=== PATIENT | female | born 1960 | race African-American/Black ===

== ENCOUNTER 2018-12-14 14:55 | Inpatient (IN) | payer OTHER ==
[~2018-12-14] VITALS: Ht 162.6 cm; Wt 100.6 kg
[2018-12-14] MEDS ORDERED: METO-99 PO (15:24)
[2018-12-14] MEDS ORDERED: HYDR-3342 PO (15:24)
[2018-12-14] MEDS ORDERED: ATOR20TA PO (15:24)
[2018-12-14] MEDS ORDERED: LISI40TA PO (15:24)
[2018-12-14] MEDS ORDERED: AMLO-150 PO (15:24)
[2018-12-14 15:29] LABS: BASOPHILS # (AUTO) 0.11 x10^3/uL (0-0.1); BASOPHILS % (AUTO) 1 % (0-1); EOSINOPHILS # (AUTO) 0.09 x10^3/uL (0-0.4); EOSINOPHILS % (AUTO) 1 % (1-7); LYMPHOCYTES # (AUTO) 4.04 x10^3/uL (1-3.4); LYMPHOCYTES % (AUTO) 42 % (22-44); MD NO; MEAN CORPUSCULAR HEMOGLOBIN 29.9 pg (27.0-34.8); MEAN CORPUSCULAR HGB CONC 32.7 g/dL (32.4-35.8); MEAN CORPUSCULAR VOLUME 91.4 fL (80-100); MEAN PLATELET VOLUME 8.3 fL (7.4-10.4); MONOCYTES # (AUTO) 0.72 x10^3/uL (0.2-0.8); MONOCYTES % (AUTO) 8 % (2-9); NEUTROPHILS # (AUTO) 4.58 x10^3/uL (1.8-6.8); NEUTROPHILS % (AUTO) 48 % (42-75); PLATELET COUNT 290 x10^3/uL (130-400); RED BLOOD COUNT 5.46 x10^6/uL (3.82-5.3); RED CELL DISTRIBUTION WIDTH 15.4 % (9.6-15.2)
[2018-12-14] MEDS ORDERED: ONDANSETRON 2MG/ML, 2ML IVPush ONE (15:30)
[2018-12-14] MEDS ORDERED: MAALOX/HYOSCYAMINE/LIDOCAINE 45 ML BTL PO ONE (15:30)
[2018-12-14] MEDS ORDERED: FAMOTIDINE 20 MG/2 ML IVP ONE (15:30)
[2018-12-14] MEDS ORDERED: SODIUM CHLORIDE FLUSH 10ML SYR IVF ONE ×2 (15:30)
[2018-12-14 15:39] LABS: ALANINE AMINOTRANSFERASE 24 U/L (12-78); ALBUMIN 3.6 g/dL (3.4-5.0); ANION GAP 8 mmol/L (5-15); CALCIUM 9.3 mg/dL (8.5-10.1); CHLORIDE 107 mmol/L (98-107); CREATININE 1.16 mg/dL (0.55-1.02)
[2018-12-14 15:44] LABS: ALKALINE PHOSPHATASE 67 U/L (45-117); BILIRUBIN,TOTAL 0.3 mg/dL (0.2-1.0); TOTAL PROTEIN 7.7 g/dL (6.4-8.2); TROPONIN I < 0.015 ng/mL (0.000-0.045)
[2018-12-14] MEDS ORDERED: ONDANSETRON 2MG/ML, 2ML ONE (15:49)
[2018-12-14] MEDS ORDERED: FAMOTIDINE 20 MG/2 ML ONE (15:50)
[2018-12-14] MEDS ORDERED: MAALOX/HYOSCYAMINE/LIDOCAINE 45 ML BTL ONE (15:50)
--- NOTE | 2018-12-14 15:57 | NUR ---
IV ESTABLISHED AND PT MEDICATED PER SEP, NOTIFIED OF PTS BP. PT RESTING IN [facility], CALL LIGHT WITHIN REACH. PT TO HAVE CT ALSO PER
[2018-12-14] MEDS ORDERED: hydrALAzine 20 MG/ML, 1ML IV ONE (16:00)
[2018-12-14] MEDS ORDERED: hydrALAzine 20 MG/ML, 1ML ONE (16:06)
--- NOTE | 2018-12-14 16:53 | NUR ---
BP NORMALIZED AFTER MEDS ERP AWARE
[2018-12-14] MEDS ORDERED: OMNIPAQUE 350 MG/ML, 100ML BOTTLE ONE (17:46)
--- NOTE | 2018-12-14 17:56 | NUR ---
RETURNED FROM CT
[2018-12-14] MEDS ORDERED: hydrALAzine 20 MG/ML, 1ML IV PRN (18:30)
--- NOTE | 2018-12-14 19:02 | NUR ---
RECEIVED REPORT FROM [facility] AND[facility] TO ASSUME CARE OF PT. DR. CHILDERS AND [facility] HAVE BOTH BEEN IN DISCUSSING POC WITH PT. PT. NOW AGREEABLE TO ADMISSION(PER REPORT PT. WAS GOING TO LEAVE AMA BUT UPON ROAD TEST BY [facility] ANDR[facility] PT. BECAME WEAK AND DIZZY.) [facility] REPORTS REPORT HAS ALREADY BEEN CALLED TO FLOOR. WILL F/U WITH TP RN TO ENSURE PT. STILL HAS BED UPSTAIRS AND IS READY FOR TRANSPORT.
[2018-12-14 19:24] VITALS: BP 161/64
[2018-12-14] MEDS ORDERED: MORPHINE SULFATE 4 MG/ML, 1ML IVPush PRN (21:00)
[2018-12-14 23:30] VITALS: BP 129/80
[2018-12-15 01:02] VITALS: BP 143/83
[2018-12-15 05:27] LABS: BASOPHILS # (AUTO) 0.04 x10^3/uL (0-0.1); BASOPHILS % (AUTO) 1 % (0-1); EOSINOPHILS # (AUTO) 0.06 x10^3/uL (0-0.4); EOSINOPHILS % (AUTO) 1 % (1-7); LYMPHOCYTES # (AUTO) 3.57 x10^3/uL (1-3.4); LYMPHOCYTES % (AUTO) 45 % (22-44); MD NO; MEAN CORPUSCULAR HEMOGLOBIN 30.5 pg (27.0-34.8); MEAN CORPUSCULAR HGB CONC 32.8 g/dL (32.4-35.8); MEAN CORPUSCULAR VOLUME 92.9 fL (80-100); MEAN PLATELET VOLUME 9.1 fL (7.4-10.4); MONOCYTES # (AUTO) 0.63 x10^3/uL (0.2-0.8); MONOCYTES % (AUTO) 8 % (2-9); NEUTROPHILS # (AUTO) 3.61 x10^3/uL (1.8-6.8); NEUTROPHILS % (AUTO) 46 % (42-75); PLATELET COUNT 270 x10^3/uL (130-400); RED BLOOD COUNT 4.98 x10^6/uL (3.82-5.3); RED CELL DISTRIBUTION WIDTH 15.2 % (9.6-15.2)
[2018-12-15 05:43] LABS: HEMOGLOBIN A1C 5.7 % (4.2-6.3)
[2018-12-15 05:51] LABS: ALBUMIN 3.2 g/dL (3.4-5.0); CHLORIDE 108 mmol/L (98-107)
[2018-12-15 06:00] LABS: ALANINE AMINOTRANSFERASE 20 U/L (12-78); ALKALINE PHOSPHATASE 60 U/L (45-117); ANION GAP 9 mmol/L (5-15); BILIRUBIN, DIRECT 0.1 mg/dL (0.1-0.2); BILIRUBIN,INDIRECT 0.5 mg/dL (0.0-2.0); BILIRUBIN,TOTAL 0.6 mg/dL (0.2-1.0); CREATININE 1.25 mg/dL (0.55-1.02); TROPONIN I < 0.015 ng/mL (0.000-0.045)
[2018-12-15 06:45] VITALS: BP 166/90
[2018-12-15 12:49] VITALS: BP 166/98
[2018-12-15] MEDS ORDERED: LISINOPRIL 40 MG TABLET PO SCH (13:00)
[2018-12-15] MEDS ORDERED: AMLODIPINE 5 MG TABLET PO SCH (13:00)
[2018-12-15] MEDS ORDERED: ATORVASTATIN 20 MG TABLET PO SCH (21:00)
== END 2018-12-15 15:46 | disposition home or self-care (01) | DRG 73 ==
LOC: ED 17:44 → EDIP 18:08 → 5SO 19:43 → DCLOUNGE 12-15 15:32
PROVIDERS: ADMIT Internal Medicine; ATTEND Internal Medicine
DX: G90.8 Other disorders of autonomic nervous system (principal); K85.90 Acute pancreatitis without necrosis or infection, unspecified; K86.1 Other chronic pancreatitis; E27.8 Other specified disorders of adrenal gland; E78.00 Pure hypercholesterolemia, unspecified; K57.30 Diverticulosis of large intestine without perforation or abscess without bleeding; R00.1 Bradycardia, unspecified; E78.5 Hyperlipidemia, unspecified; G89.29 Other chronic pain; I11.9 Hypertensive heart disease without heart failure; I16.0 Hypertensive urgency; K21.9 Gastro-esophageal reflux disease without esophagitis; Z72.0 Tobacco use; Z90.49 Acquired absence of other specified parts of digestive tract; Z88.5 Allergy status to narcotic agent; Z71.6 Tobacco abuse counseling
CPT/HCPCS: 36415; J3490; 71045; 74177; 80048; 80053; 80076; 83036; 83690; 83880; 84443; 84484; 85025; 93005; 93306; 93880; 96374; 96375; G0378; J2405; Q9967; J0360

== ENCOUNTER 2019-02-08 21:50 | Observation (INO) | payer OTHER ==
[~2019-02-08] VITALS: Ht 162.6 cm; Wt 99.8 kg
[~2019-02-08 21:50] MED LIST: AMLO-150 PO; ATOR20TA PO; HYDR-3342 PO; LISI40TA PO; METO-99 PO
[2019-02-08] MEDS ORDERED: MORPHINE SULFATE 4 MG/ML, 1ML IVPush PRN (22:00)
[2019-02-08] MEDS ORDERED: ONDANSETRON 2MG/ML, 2ML IVPush ONE (22:00)
--- NOTE | 2019-02-08 22:06 | NUR ---
SUDDEN CHEST PAIN THAT STARTED ABOUT 1 HOUR AGO. PT GIVEN 1 NITRO PER EMS THAT RESOLVED CHEST PAIN TEMPORARILY. 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 ER MD AT BEDSIDE ,PT ASSESSMENT REVIEVED, ORDERS RECIEVED. PT PLACED ON FULL MONITOR. CALL LIGHT WITHIN REACH. SON AT BEDSIDE. NO NEEDS STATED AT THIS TIME. WILL CONTINE TO MONITOR.
[2019-02-08 22:28] LABS: MEAN CORPUSCULAR HGB CONC 32.8 g/dL (32.4-35.8); MEAN CORPUSCULAR VOLUME 91.6 fL (80-100); MEAN PLATELET VOLUME 8.4 fL (7.4-10.4); PLATELET COUNT 310 x10^3/uL (130-400); RED BLOOD COUNT 4.88 x10^6/uL (3.82-5.3); RED CELL DISTRIBUTION WIDTH 15.3 % (9.6-15.2)
[2019-02-08] MEDS ORDERED: ONDANSETRON 2MG/ML, 2ML ONE (22:30)
[2019-02-08] MEDS ORDERED: MORPHINE SULFATE 4 MG/ML, 1ML ONE (22:31)
[2019-02-08 22:36] LABS: ALANINE AMINOTRANSFERASE 22 U/L (12-78); ALBUMIN 3.3 g/dL (3.4-5.0); ANION GAP 8 mmol/L (5-15); CALCIUM 8.6 mg/dL (8.5-10.1); CHLORIDE 107 mmol/L (98-107)
[2019-02-08 22:40] LABS: ALKALINE PHOSPHATASE 63 U/L (45-117); BILIRUBIN,TOTAL 0.3 mg/dL (0.2-1.0); TOTAL PROTEIN 7.5 g/dL (6.4-8.2); TROPONIN I < 0.015 ng/mL (0.000-0.045)
[2019-02-08 22:47] LABS: MD YES
[2019-02-08 22:50] LABS: ANISOCYTOSIS 1+; EOS#(MANUAL) 0.27 x10^3/uL (0.0-0.4); EOS% (MANUAL) 3 % (1-7); LYMPH#(MANUAL) 3.03 x10^3/uL (1-3.4); LYMPHS% (MANUAL) 34 % (22-44); MONOS#(MANUAL) 1.25 x10^3/uL (0.3-2.7); MONOS% (MANUAL) 14 % (2-9); SEG#(MANUAL) 4.36 x10^3/uL (1.8-6.8); SEGS% (MANUAL) 49 % (42-75)
[2019-02-08 22:51] LABS: <PLATELET ESTIMATE> ADEQUATE; <PLT MORPHOLOGY> NORMAL PLT MORPH
--- NOTE | 2019-02-08 23:17 | NUR ---
PAIN REASSESSED AND PT STATES SHE IS STILL HAVING CHEST PAIN AND RATES IT A 6 NOW.
[2019-02-08] MEDS ORDERED: MAALOX/HYOSCYAMINE/LIDOCAINE 45 ML BTL ONE (23:37)
[2019-02-08] MEDS ORDERED: FAMOTIDINE 20 MG/2 ML ONE (23:37)
[2019-02-08] MEDS ORDERED: OMNIPAQUE 350 MG/ML, 100ML BOTTLE ONE (23:53)
[2019-02-09] MEDS ORDERED: MAALOX/HYOSCYAMINE/LIDOCAINE 45 ML BTL PO ONE
[2019-02-09] MEDS ORDERED: FAMOTIDINE 20 MG/2 ML IVPush ONE
[2019-02-09] MEDS ORDERED: HYDR25TA6 PO (00:07)
[2019-02-09 01:30] VITALS: BP 128/84
[2019-02-09] MEDS ORDERED: hydrALAzine 20 MG/ML, 1ML IVPush PRN (03:00)
[2019-02-09] MEDS ORDERED: POTASSIUM CHLORIDE 20 MEQ TAB.ER.PRT PO ONE (03:00)
[2019-02-09] MEDS ORDERED: morphine SULFATE 10 MG/ML, 1ML IVPush PRN (03:00)
[2019-02-09] MEDS ORDERED: ONDANSETRON 2MG/ML, 2ML IVPush PRN (03:00)
[2019-02-09] MEDS ORDERED: ENALAPRILAT 1.25 MG/ML, 1ML IVPush PRN (03:00)
[2019-02-09] MEDS ORDERED: ACETAMINOPHEN 325 MG TABLET PO PRN (03:00)
[2019-02-09] MEDS ORDERED: NITROGLYCERIN 0.4 MG BOTTLE (25 TABS) SL PRN (03:00)
[2019-02-09] MEDS ORDERED: ENOXAPARIN 40 MG/0.4 ML SQ SCH (03:00)
[2019-02-09] MEDS ORDERED: ASPIRIN 81 MG TABLET EC ONE (03:56)
[2019-02-09] MEDS ORDERED: ASPIRIN 81 MG TABLET EC PO SCH (06:00)
[2019-02-09 07:04] LABS: TROPONIN I < 0.015 ng/mL (0.000-0.045)
[2019-02-09] MEDS ORDERED: PANTOPROZOLE 40MG TABLET PO SCH (07:30)
[2019-02-09] MEDS ORDERED: POTASSIUM CHLORIDE 20 MEQ TAB.ER.PRT PO SCH (08:00)
[2019-02-09 08:40] VITALS: BP 126/86
[2019-02-09] MEDS ORDERED: AMLODIPINE 5 MG TABLET PO SCH (09:00)
[2019-02-09] MEDS ORDERED: LISINOPRIL 40 MG TABLET PO SCH (09:00)
[2019-02-09] MEDS ORDERED: HYDROCHLOROTHIAZIDE 25 MG TABLET PO SCH (09:00)
[2019-02-09 13:26] VITALS: BP 137/85
[2019-02-09 14:25] LABS: TROPONIN I < 0.015 ng/mL (0.000-0.045)
[2019-02-09 15:31] VITALS: BP 132/79
[2019-02-09] MEDS ORDERED: ASPI81TA45 PO (15:43)
[2019-02-09] MEDS ORDERED: PANT40TA5 PO (15:43)
[2019-02-09] MEDS ORDERED: POTA20TA6 PO (15:43)
[2019-02-09] MEDS ORDERED: ATORVASTATIN 20 MG TABLET PO SCH (21:00)
[2019-02-09] MEDS ORDERED: ATORVASTATIN 40 MG TABLET PO SCH (21:00)
[2019-02-10] MEDS ORDERED: HEPARIN 5,000 UNITS/ML, 1ML SQ SCH (03:00)
== END 2019-02-09 17:15 | disposition home or self-care (01) ==
LOC: ED 23:59 → INTOOBSV 02-09 01:06 → EDIP 02-09 01:06 → 5SO 02-09 01:24
PROVIDERS: ADMIT Family Medicine; ATTEND Family Medicine
DX: R07.89 Other chest pain (principal); I13.10 Hypertensive heart and chronic kidney disease without heart failure, with stage 1 through stage 4 chronic kidney disease, or unspecified chronic kidney disease; N18.3 Chronic kidney disease, stage 3 (moderate); E78.5 Hyperlipidemia, unspecified; K21.9 Gastro-esophageal reflux disease without esophagitis; G89.29 Other chronic pain; F17.210 Nicotine dependence, cigarettes, uncomplicated; F10.20 Alcohol dependence, uncomplicated; Z79.899 Other long term (current) drug therapy
CPT/HCPCS: 36415; 71045; 71275; 78452; 80053; 83690; 83880; 84484; 85025; 85379; 93005; 93017; 96372; 96374; 96375; 99284; A9502; G0378; J1650; J2270; J2405; J3490; Q9967

== ENCOUNTER 2019-09-11 23:06 | Emergency (ER) | payer OTHER ==
[~2019-09-11] VITALS: Ht 154.9 cm; Wt 86.1 kg
[~2019-09-11 23:06] MED LIST changes: +ASPI81TA45 PO; +HYDR25TA6 PO; +PANT40TA5 PO; +POTA20TA6 PO
--- NOTE | 2019-09-12 00:17 | NUR ---
First contact w/ pt. Pt presents to ed c/o R flank and back painxapproximately a month. States painful urination and increased frequency for "about a week" that has since stopped. States pain and swelling to R flank and abd increased. Recently had sx on vessels in abd. Monitoring applied. Vss. Call light within reach. Attempted ua at this time.
[2019-09-12] MEDS ORDERED: MORPHINE SULFATE 4 MG/ML, 1ML ONE (00:29)
[2019-09-12] MEDS ORDERED: ONDANSETRON 2MG/ML, 2ML ONE (00:29)
[2019-09-12] MEDS ORDERED: SODIUM CHLORIDE FLUSH 10ML SYR IVF ONE (00:30)
[2019-09-12] MEDS ORDERED: ONDANSETRON 2MG/ML, 2ML IVPush ONE (00:30)
[2019-09-12] MEDS ORDERED: MORPHINE SULFATE 4 MG/ML, 1ML IVPush PRN (00:30)
[2019-09-12 00:57] LABS: ALANINE AMINOTRANSFERASE 20 U/L (12-78); ALBUMIN 3.1 g/dL (3.4-5.0); ANION GAP 9 mmol/L (5-15); CALCIUM 8.5 mg/dL (8.5-10.1); CHLORIDE 102 mmol/L (98-107); CREATININE 1.25 mg/dL (0.55-1.02)
[2019-09-12 00:59] LABS: MEAN CORPUSCULAR HEMOGLOBIN 30.3 pg (27.0-34.8); MEAN CORPUSCULAR HGB CONC 32.9 g/dL (32.4-35.8); MEAN PLATELET VOLUME 8.3 fL (7.4-10.4); PLATELET COUNT 289 x10^3/uL (130-400); RED BLOOD COUNT 5.18 x10^6/uL (3.82-5.3); RED CELL DISTRIBUTION WIDTH 14.8 % (9.6-15.2)
[2019-09-12 01:02] LABS: ALKALINE PHOSPHATASE 68 U/L (45-117); BILIRUBIN,TOTAL 0.3 mg/dL (0.2-1.0); TOTAL PROTEIN 8.1 g/dL (6.4-8.2); TROPONIN I < 0.015 ng/mL (0.000-0.045)
--- NOTE | 2019-09-12 01:11 | NUR ---
forensic technician to bedside, patient transported without event. Awaiting return, imaging to be read.
[2019-09-12 01:23] LABS: CULTURE INDICATED? YES; MICROSCOPIC INDICATED
[2019-09-12 01:30] LABS: MD YES
[2019-09-12 01:35] LABS: ANISOCYTOSIS 1+; BAND#(MANUAL) 0.12 x10^3/uL; BANDS%(MANUAL) 1 % (0-7); EOS#(MANUAL) 0.35 x10^3/uL (0.0-0.4); EOS% (MANUAL) 3 % (1-7); LYMPH#(MANUAL) 3.74 x10^3/uL (1-3.4); LYMPHS% (MANUAL) 32 % (22-44); MONOS#(MANUAL) 1.52 x10^3/uL (0.3-2.7); MONOS% (MANUAL) 13 % (2-9); REACTIVE LYMPHS # (MANUAL) 0.23 x10^3/uL (0-0); REACTIVE LYMPHS % (MANUAL) 2 % (0-0); SEG#(MANUAL) 5.73 x10^3/uL (1.8-6.8); SEGS% (MANUAL) 49 % (42-75)
[2019-09-12 01:36] LABS: <PLATELET ESTIMATE> ADEQUATE; <PLT MORPHOLOGY> NORMAL PLT MORPH; POLYCHROMASIA 1+
[2019-09-12 02:03] VITALS: BP 121/74
[2019-09-12] MEDS ORDERED: OMNIPAQUE 350 MG/ML, 100ML BOTTLE ONE (06:14)
== END 2019-09-12 02:27 | disposition home or self-care (01) ==
LOC: ED 09-12 01:49
DX: K57.30 Diverticulosis of large intestine without perforation or abscess without bleeding (principal); N30.00 Acute cystitis without hematuria; N10 Acute pyelonephritis; I10 Essential (primary) hypertension; E78.00 Pure hypercholesterolemia, unspecified; E78.5 Hyperlipidemia, unspecified; F17.200 Nicotine dependence, unspecified, uncomplicated
CPT/HCPCS: 36415; 74177; 80053; 81001; 83690; 84484; 84703; 85025; 87077; 87086; 93005; 96374; 96375; 99285; J2270; J2405; Q9967; 87186

== ENCOUNTER 2020-08-28 19:18 | Inpatient (IN) | payer OTHER ==
[~2020-08-28] VITALS: Ht 162.6 cm; Wt 74.6 kg
[~2020-08-28 19:18] MED LIST changes: -LISI40TA PO; +LISI40TA9 PO; -PANT40TA5 PO; +PANT40TA6 PO
--- NOTE | 2020-08-28 19:27 | NUR ---
ERP AND [facility] AT BEDSIDE
[2020-08-28] MEDS ORDERED: ONDANSETRON 2MG/ML, 2ML IVPush ONE (19:30)
[2020-08-28] MEDS ORDERED: MORPHINE SULFATE 4 MG/ML, 1ML ONE ×2 (19:31→20:42)
[2020-08-28] MEDS ORDERED: ONDANSETRON 2MG/ML, 2ML ONE (19:31)
[2020-08-28] MEDS: MORPHINE SULFATE 4 MG/ML, 1ML IVPush PRN ×2 (19:38→20:47)
--- NOTE | 2020-08-28 20:53 | NUR ---
pt having intense pain, medicated per emar, placed on bed jalloh, will reassess
--- NOTE | 2020-08-28 21:15 | NUR ---
PT UNABLE TO URINATE AT THIS TIME, PT HAVING A LOT OF PAIN WHEN TURNING SIDE TO SIDE FOR BEDPAN PLACEMENT, REFUSED PUREWICK AT THIS TIME. STATES SHE DOES NOT FEEL LIKE SHE HAS TO "PEE THAT BAD". PT TO CALL WHEN WANTING TO REATTEMPT
--- NOTE | 2020-08-28 21:40 | NUR ---
SPOKE WITH DR. SALAS, IF PATIENT IS UNABLE TO WALK AND CARE FOR HERSELF, SHE SHOULD BE ADMITTED. THIS RN ATTEMPTED TO GET PATEINT UP, PT HAD PAIN MEDICATION, PT SCREAMING IN PAIN WHILE SITTING UP, PT REQUIRED A LOT OF ASSISTANCE FROM THIS RN, ONLY ABLE TO GET PATIENT TO BSC, PT SHUFFLING WHILE WALKING. DR. SALAS AWARE.
[2020-08-28] MEDS ORDERED: HYDROmorphone 1 MG/ML, 1ML INJ ONE (21:59)
[2020-08-28] MEDS ORDERED: HYDROmorphone 2 MG/ML, 1ML IVPush PRN (22:00)
--- NOTE | 2020-08-28 22:16 | NUR ---
PT RESTING IN [facility], MEDICATED FOR PAIN PER EMAR, PT PLACED ON 02 AND ALL MONITORS, CALL LIGHT WITHIN REACH, MED REC UPDATED
--- NOTE | 2020-08-28 22:45 | NUR ---
HOSP AT BEDSIDE
[2020-08-28] MEDS ORDERED: ONDANSETRON 2MG/ML, 2ML IVPush PRN ×2 (23:00)
[2020-08-28] MEDS ORDERED: ACETAMINOPHEN 325 MG TABLET PO PRN (23:00)
[2020-08-28] MEDS ORDERED: BISACODYL 10 MG SUPP PR PRN (23:00)
[2020-08-28] MEDS ORDERED: POLYETHYLENE GLYCOL 17 GM PACKET PO PRN (23:00)
[2020-08-28] MEDS ORDERED: HYDROmorphone 1 MG/ML, 1ML INJ IVPush PRN (23:00)
[2020-08-28] MEDS ORDERED: KETOROLAC 30 MG/1 ML IV PRN (23:00)
[2020-08-28] MEDS ORDERED: SODIUM CHLORIDE FLUSH 10ML SYR IVF PRN (23:00)
[2020-08-28 23:03] LABS: BASOPHILS % (AUTO) 1 % (0-1); EOSINOPHILS % (AUTO) 1 % (1-7); LYMPHOCYTES % (AUTO) 36 % (22-44); MEAN CORPUSCULAR HEMOGLOBIN 31.1 pg (27.0-34.8); MEAN PLATELET VOLUME 8.5 fL (7.4-10.4); MONOCYTES % (AUTO) 9 % (2-9); NEUTROPHILS % (AUTO) 54 % (42-75); PLATELET COUNT 249 x10^3/uL (130-400); RED BLOOD COUNT 4.77 x10^6/uL (3.82-5.3); RED CELL DISTRIBUTION WIDTH 14.7 % (9.6-15.2)
[2020-08-28 23:08] LABS: MD NO
[2020-08-28 23:13] LABS: ANION GAP 6 mmol/L (5-15); CALCIUM 8.7 mg/dL (8.5-10.1); CHLORIDE 108 mmol/L (98-107); CREATININE 0.96 mg/dL (0.55-1.02)
[2020-08-28 23:14] LABS: ALANINE AMINOTRANSFERASE 36 U/L (12-78); ALBUMIN 3.4 g/dL (3.4-5.0)
[2020-08-28 23:16] LABS: ALKALINE PHOSPHATASE 60 U/L (45-117); BILIRUBIN,TOTAL 0.4 mg/dL (0.2-1.0); TOTAL PROTEIN 7.2 g/dL (6.4-8.2)
--- NOTE | 2020-08-28 23:39 | NUR ---
REPORT GIVEN TO [facility] ROSE
[2020-08-29 00:01] VITALS: BP 161/95
[2020-08-29] MEDS: SODIUM CHLORIDE FLUSH 10ML SYR IVF SCH ×3 (00:09→20:35)
[2020-08-29] MEDS: LIDODERM 5% PATCH TD SCH (00:09)
[2020-08-29 00:19] VITALS: BP 161/95
[2020-08-29] MEDS: morphine SULFATE 10 MG/ML, 1ML IVPush PRN ×5 (01:13→17:09)
[2020-08-29] MEDS: ASPIRIN 81 MG TABLET EC PO SCH (05:00)
[2020-08-29 07:07] VITALS: BP 134/74
[2020-08-29] MEDS: AMLODIPINE 5 MG TABLET PO SCH (08:40)
[2020-08-29] MEDS: HYDROCHLOROTHIAZIDE 25 MG TABLET PO SCH (08:40)
[2020-08-29] MEDS: SENNA/DOCUSATE TABLET PO SCH (08:41)
[2020-08-29] MEDS: LISINOPRIL 40 MG TABLET PO SCH (08:41)
[2020-08-29] MEDS ORDERED: LORazepam 1MG TABLET PO ONE ×2 (11:00→16:00)
[2020-08-29 12:15] VITALS: BP 151/90
[2020-08-29] MEDS ORDERED: GADOTERATE 7.5 MMOL/15 ML VIAL ONE (16:40)
[2020-08-29 19:23] VITALS: BP 133/77
[2020-08-29] MEDS: ATORVASTATIN 20 MG TABLET PO SCH (20:35)
[2020-08-30] MEDS: LIDODERM 5% PATCH TD SCH (01:02)
[2020-08-30 01:04] VITALS: BP 137/83
[2020-08-30] MEDS: morphine SULFATE 10 MG/ML, 1ML IVPush PRN ×3 (03:42→16:39)
[2020-08-30] MEDS: ASPIRIN 81 MG TABLET EC PO SCH (06:11)
[2020-08-30 07:23] VITALS: BP 137/82
[2020-08-30] MEDS: SENNA/DOCUSATE TABLET PO SCH (08:44)
[2020-08-30] MEDS: HYDROCHLOROTHIAZIDE 25 MG TABLET PO SCH (08:45)
[2020-08-30] MEDS: AMLODIPINE 5 MG TABLET PO SCH (08:45)
[2020-08-30] MEDS: LISINOPRIL 40 MG TABLET PO SCH (08:45)
[2020-08-30] MEDS: METHOCARBAMOL 500 MG TABLET PO PRN ×2 (08:47→17:58)
[2020-08-30] MEDS: SODIUM CHLORIDE FLUSH 10ML SYR IVF SCH ×2 (08:50→21:28)
[2020-08-30 12:21] VITALS: BP 152/97
[2020-08-30 18:52] VITALS: BP 151/94
[2020-08-30] MEDS: ATORVASTATIN 20 MG TABLET PO SCH (21:27)
[2020-08-30] MEDS: OXYcodone IR 5MG TABLET PO PRN (21:28)
[2020-08-31 00:52] VITALS: BP 153/88
[2020-08-31] MEDS: LIDODERM 5% PATCH TD SCH (01:00)
[2020-08-31] MEDS: OXYcodone IR 5MG TABLET PO PRN (06:24)
[2020-08-31 07:06] VITALS: BP 174/94
[2020-08-31] MEDS: AMLODIPINE 5 MG TABLET PO SCH (08:27)
[2020-08-31] MEDS: HYDROCHLOROTHIAZIDE 25 MG TABLET PO SCH (08:27)
[2020-08-31] MEDS: SENNA/DOCUSATE TABLET PO SCH (08:27)
[2020-08-31] MEDS: LISINOPRIL 40 MG TABLET PO SCH (08:27)
[2020-08-31] MEDS: SODIUM CHLORIDE FLUSH 10ML SYR IVF SCH ×2 (08:28→20:29)
[2020-08-31] MEDS: morphine SULFATE 10 MG/ML, 1ML IVPush PRN (08:57)
[2020-08-31] MEDS: HYDROcodone/APAP 5/325 TABLET PO PRN ×2 (12:02→20:28)
[2020-08-31 12:26] VITALS: BP 166/84
[2020-08-31] MEDS ORDERED: CYCLOBENZAPRINE 10 MG TABLET PO SCH (16:00)
[2020-08-31] MEDS: CYCLOBENZAPRINE 10 MG TABLET PO SCH ×2 (16:24→20:28)
[2020-08-31] MEDS: ATORVASTATIN 20 MG TABLET PO SCH (20:28)
[2020-08-31 20:30] VITALS: BP 134/82
[2020-09-01 00:49] VITALS: BP 131/79
[2020-09-01] MEDS: LIDODERM 5% PATCH TD SCH (00:49)
[2020-09-01] MEDS: HYDROcodone/APAP 5/325 TABLET PO PRN ×2 (03:35→09:22)
[2020-09-01] MEDS: METHOCARBAMOL 500 MG TABLET PO PRN (04:55)
[2020-09-01 08:33] VITALS: BP 149/83
[2020-09-01] MEDS: CYCLOBENZAPRINE 10 MG TABLET PO SCH ×2 (09:20→19:48)
[2020-09-01] MEDS: AMLODIPINE 5 MG TABLET PO SCH (09:20)
[2020-09-01] MEDS: LISINOPRIL 40 MG TABLET PO SCH (09:20)
[2020-09-01] MEDS: SENNA/DOCUSATE TABLET PO SCH (09:21)
[2020-09-01] MEDS: SODIUM CHLORIDE FLUSH 10ML SYR IVF SCH ×2 (09:35→19:49)
[2020-09-01] MEDS: HYDROCHLOROTHIAZIDE 25 MG TABLET PO SCH (09:35)
[2020-09-01] MEDS: HYDROmorphone 1 MG/ML, 1ML INJ IV PRN ×2 (12:30→19:48)
[2020-09-01 15:57] VITALS: BP 123/77
[2020-09-01 19:46] VITALS: BP 154/88
[2020-09-01] MEDS: ATORVASTATIN 20 MG TABLET PO SCH (19:48)
[2020-09-02 01:28] VITALS: BP 148/79
[2020-09-02] MEDS: LIDODERM 5% PATCH TD SCH (01:29)
[2020-09-02] MEDS: HYDROmorphone 1 MG/ML, 1ML INJ IV PRN ×4 (01:40→21:21)
[2020-09-02 07:43] VITALS: BP 135/81
[2020-09-02] MEDS: CYCLOBENZAPRINE 10 MG TABLET PO SCH ×3 (08:27→21:20)
[2020-09-02] MEDS: SENNA/DOCUSATE TABLET PO SCH (08:27)
[2020-09-02] MEDS: LISINOPRIL 40 MG TABLET PO SCH (08:28)
[2020-09-02] MEDS: AMLODIPINE 5 MG TABLET PO SCH (08:28)
[2020-09-02] MEDS: HYDROCHLOROTHIAZIDE 25 MG TABLET PO SCH (08:28)
[2020-09-02] MEDS: SODIUM CHLORIDE FLUSH 10ML SYR IVF SCH ×2 (08:29→21:21)
[2020-09-02 13:12] VITALS: BP 118/74
[2020-09-02 18:56] VITALS: BP 149/91
[2020-09-02] MEDS: ATORVASTATIN 20 MG TABLET PO SCH (21:20)
[2020-09-03 01:30] VITALS: BP 142/83
[2020-09-03] MEDS: LIDODERM 5% PATCH TD SCH (02:00)
[2020-09-03 02:15] VITALS: BP 153/78
[2020-09-03] MEDS: HYDROmorphone 1 MG/ML, 1ML INJ IV PRN ×4 (02:20→19:41)
[2020-09-03 04:55] LABS: BASOPHILS % (AUTO) 1 % (0-1); EOSINOPHILS % (AUTO) 0 % (1-7); LYMPHOCYTES % (AUTO) 17 % (22-44); MEAN CORPUSCULAR HEMOGLOBIN 31.2 pg (27.0-34.8); MEAN CORPUSCULAR HGB CONC 34.4 g/dL (32.4-35.8); MEAN PLATELET VOLUME 8.3 fL (7.4-10.4); MONOCYTES % (AUTO) 16 % (2-9); NEUTROPHILS % (AUTO) 67 % (42-75); PLATELET COUNT 237 x10^3/uL (130-400); RED BLOOD COUNT 4.82 x10^6/uL (3.82-5.3); RED CELL DISTRIBUTION WIDTH 14.3 % (9.6-15.2)
[2020-09-03 05:04] LABS: ALBUMIN 2.9 g/dL (3.4-5.0); ANION GAP 6 mmol/L (5-15); CALCIUM 8.8 mg/dL (8.5-10.1); CHLORIDE 101 mmol/L (98-107)
[2020-09-03 05:10] LABS: ALANINE AMINOTRANSFERASE 25 U/L (12-78); ALKALINE PHOSPHATASE 69 U/L (45-117); BILIRUBIN,TOTAL 0.3 mg/dL (0.2-1.0); CREATININE 0.92 mg/dL (0.55-1.02)
[2020-09-03 05:40] LABS: MD SCAN
[2020-09-03] MEDS: CYCLOBENZAPRINE 10 MG TABLET PO SCH ×3 (07:53→21:07)
[2020-09-03] MEDS: SENNA/DOCUSATE TABLET PO SCH (07:53)
[2020-09-03] MEDS: HYDROCHLOROTHIAZIDE 25 MG TABLET PO SCH (07:53)
[2020-09-03] MEDS: AMLODIPINE 5 MG TABLET PO SCH (07:53)
[2020-09-03] MEDS: LISINOPRIL 40 MG TABLET PO SCH (07:53)
[2020-09-03 07:55] VITALS: BP 116/75
[2020-09-03] MEDS: SODIUM CHLORIDE FLUSH 10ML SYR IVF SCH ×2 (07:56→21:07)
[2020-09-03 11:17] VITALS: BP 110/72
[2020-09-03] MEDS ORDERED: FENTANYL PF 100 MCG/2ML ONE (12:54)
[2020-09-03] MEDS ORDERED: LIDOCAINE 1%, 10ML ONE (12:56)
[2020-09-03] MEDS ORDERED: LIDOCAINE 1%, 20ML ONE (12:56)
[2020-09-03] MEDS ORDERED: MIDAZOLAM 1 MG/ML, 2ML ONE (13:13)
[2020-09-03 19:30] VITALS: BP 109/65
[2020-09-03 21:00] VITALS: BP 106/68
[2020-09-03] MEDS: ATORVASTATIN 20 MG TABLET PO SCH (21:07)
[2020-09-04 01:13] VITALS: BP 115/75
[2020-09-04] MEDS: LIDODERM 5% PATCH TD SCH (01:29)
[2020-09-04] MEDS: METHOCARBAMOL 500 MG TABLET PO PRN ×2 (01:29→09:24)
[2020-09-04] MEDS: HYDROcodone/APAP 5/325 TABLET PO PRN ×3 (01:30→14:40)
[2020-09-04 08:20] VITALS: BP 108/71
[2020-09-04] MEDS: AMLODIPINE 5 MG TABLET PO SCH (08:32)
[2020-09-04] MEDS: LISINOPRIL 40 MG TABLET PO SCH (08:32)
[2020-09-04] MEDS: HYDROCHLOROTHIAZIDE 25 MG TABLET PO SCH (08:32)
[2020-09-04] MEDS: SENNA/DOCUSATE TABLET PO SCH (08:32)
[2020-09-04] MEDS: SODIUM CHLORIDE FLUSH 10ML SYR IVF SCH (08:33)
[2020-09-04] MEDS: CYCLOBENZAPRINE 10 MG TABLET PO SCH ×2 (08:33→15:50)
[2020-09-04] MEDS ORDERED: AMLO-150 PO (11:13)
[2020-09-04] MEDS ORDERED: HYDR-1067 PO (11:13)
[2020-09-04] MEDS ORDERED: LISI40TA9 PO (11:13)
[2020-09-04 13:28] VITALS: BP 103/78
== END 2020-09-04 16:31 | disposition home or self-care (01) | DRG 478 ==
LOC: ED 19:48 → EDIP 22:48 → 3N 23:51
PROVIDERS: ADMIT Internal Medicine; ATTEND Hospitalist
PROC: 0QB03ZX Excision of Lumbar Vertebra, Percutaneous Approach, Diagnostic (ICD-10-PCS; 2020-09-03)
PROC: 0QU03JZ Supplement Lumbar Vertebra with Synthetic Substitute, Percutaneous Approach (ICD-10-PCS; 2020-09-03)
PROC: BR191ZZ Fluoroscopy of Lumbar Spine using Low Osmolar Contrast (ICD-10-PCS; 2020-09-03)
PROC: 0QS03ZZ Reposition Lumbar Vertebra, Percutaneous Approach (ICD-10-PCS; principal; 2020-09-03 13:00)
DX: S32.030A Wedge compression fracture of third lumbar vertebra, initial encounter for closed fracture (principal); K86.1 Other chronic pancreatitis; I10 Essential (primary) hypertension; E78.00 Pure hypercholesterolemia, unspecified; K21.9 Gastro-esophageal reflux disease without esophagitis; F10.20 Alcohol dependence, uncomplicated; F17.210 Nicotine dependence, cigarettes, uncomplicated; E78.5 Hyperlipidemia, unspecified; Z20.822 Contact with and (suspected) exposure to COVID-19; E87.6 Hypokalemia; Z79.899 Other long term (current) drug therapy; V03.10XA Pedestrian on foot injured in collision with car, pick-up truck or van in traffic accident, initial encounter; Z88.5 Allergy status to narcotic agent; Y92.410 Unspecified street and highway as the place of occurrence of the external cause; Z79.82 Long term (current) use of aspirin; Z79.01 Long term (current) use of anticoagulants
CPT/HCPCS: 36415; 72170; 96361; 96374; 96375; 99285; J3490; 70450; 72125; 72128; 72131; 72158; 80053; 85025; 87635; 93005; G0378; J1170; J1885; J2250; J2405; J3010; 22511; A9575; C1713; J2270